=== PATIENT | female | born 1970 | race Two or more races ===

== ENCOUNTER 2017-01-03 19:12 | Emergency (ER) | payer BC ==
[~2017-01-03] VITALS: Ht 152.4 cm; Wt 43.1 kg
[~2017-01-03 19:12] MED LIST: NKM
[2017-01-03 19:15] VITALS: BP 130/78
[2017-01-03] MEDS ORDERED: oxyCODONE HCL/Acetaminophen 5/325mg ORAL ONE (19:15)
[2017-01-03 20:15] VITALS: BP 128/76
[2017-01-03 20:20] VITALS: BP 128/76
--- NOTE | 2017-01-04 10:53 | Diagnostic Imaging Report ---
Indication: PAIN Technique: 2 views of the left knee Comparison: None Findings: The patella is dislocated laterally. No definite bony fracture demonstrated. The joint spaces are preserved. Impression: Lateral dislocation of the patella. The electronic medical record indicates this was identified by the emergency department physician
--- NOTE | 2017-01-04 15:17 | Emergency Room Report ---
History of Present Illness General Chief Complaint: Lower Extremity Injury Source: Patient Present Illness HPI [id number] BIBEMS with suspected left "knee dislocation." No acute trauma Patient states was playing with her son on her lap/knees and suddenly had severe pain to left knee with obvious deformity No previous knee dislocation, orthopedic issues No meds taken, given by EMS Pain worse with flexion/extension, any movement Allergies: Coded Allergies: No Known Allergies (Unverified , 01/03/17) Patient History Past Medical History: none Past Surgical History: none Pertinent Family History: none Social History: Denies: smoking, alcohol use, drug use Last Menstrual Period: 12/12/16 Now: No Immunizations: UTD Reviewed Nursing Documentation: PMH: Agreed, PSxH: Agreed Nursing Documentation-PMH Past Medical History: No Stated History Review of Systems All Other Systems: negative except mentioned in HPI Physical Exam Vital Signs Date Time Temp Pulse Resp B/P (MAP) Pulse Ox O2 Delivery O2 Flow Rate FiO2 01/03/17 19:01 62 14 121/71 98 Room Air 01/03/17 19:15 98.2 Sp02 EP Interpretation: reviewed, normal General Appearance: normal inspection, well appearing, alert, GCS 15, non-toxic , mild distress Head: normocephalic, atraumatic Eyes: bilateral eye PERRL, bilateral eye EOMI ENT: normal ENT inspection, hearing grossly normal, normal voice Neck: normal inspection, full range of motion, supple, no bony tend Respiratory: normal inspection, lungs clear, normal breath sounds, no respiratory distress, no retraction, no wheezing Cardiovascular #1: regular rate, rhythm, no edema Gastrointestinal: normal inspection, normal bowel sounds, non tender, soft, no guarding, no hernia Genitourinary: no CVA tenderness Musculoskeletal: normal inspection, back normal, normal range of motion, Piper' s Sign negative, other - Left knee: obvious lateral patella dislocation. Intact popliteal and dosalis pedis pulse. Neurologic: normal inspection, alert, oriented x3, responsive, medical billing associate III-XII nml as tested, speech normal Psychiatric: normal inspection, judgement/insight normal, mood/affect normal Skin: normal inspection, normal color, no rash Lymphatic: normal inspection Procedures Joint Reduction Joint Reduction : Consent: Verbal Joint Reduction Site: patella (L) Procedural Sedation: No Reduction Attempts: One Pre-Procedure NV Exam: Yes Post-Procedure NV Exam: Yes Post Joint Reduction Film: joint not reduced Patient Tolerated: Well Complications: None Progress Patient positioned supine Left leg/knee slowly brought to full extension by tech Neo while I applied medially directed steady force on patella until obvious relocation of patella Patient tolerated procedure well Medical Decision Making Diagnostic Impression: Primary Impression: Dislocation of patella, left, closed Qualified Codes: S83.005A - Unspecified dislocation of left patella, initial encounter ER Course Left patella dislocation No nerurovascular compromise No acute fx on ED review of xray Xray shows lateral patella dislocation Was reduced in ED Knee immobilized - crutches provided Advised Ortho followup in 2-3 days and keeping immobilized until cleared by Ortho DC home Other X-Ray Diagnostic Results Other X-Ray Diagnostic Results : X-Ray ordered: Left knee # of Views/Limited Vs Complete: 2 View Indication: Pain EP Interpretation: Yes Interpretation: no soft tissue swelling, no fractures Impression: Other - Acute lateral patella dislocation Electronically Signed by: Dr Jose Rodriguez MD Last Vital Signs Date Time Temp Pulse Resp B/P (MAP) Pulse Ox O2 Delivery O2 Flow Rate FiO2 01/03/17 20:21 98.2 01/03/17 20:20 80 16 128/76 100 Room Air Status: improved Disposition: HOME, SELF-CARE Condition: Improved Referrals: NOT CHOSEN IPA/,REFERRING (PCP) Patient Instructions: Patellar Dislocation Additional Instructions: - Keep knee immobilizer on until reassessed by Orthopedist in 2-3 days JOSE RODRIGUEZ M.D. Jan 04, 2017 15:17
== END 2017-01-03 22:37 | disposition home or self-care (01) ==
LOC: EDBD 19:12 → EMR 20:03
DX: S83.005A Unspecified dislocation of left patella, initial encounter (principal); X58.XXXA Exposure to other specified factors, initial encounter; Y93.9 Activity, unspecified; Y92.9 Unspecified place or not applicable
CPT/HCPCS: 99283